=== PATIENT | female | born 1995 | race Caucasian/White ===

== ENCOUNTER 2016-07-11 09:00 | Emergency (ER) | payer MEDICAID, OTHER ==
[~2016-07-11] VITALS: Ht 157.5 cm; Wt 50.5 kg
[~2016-07-11 09:00] MED LIST: IBUP600 PO; MULT-65 PO; PERI8.6T PO
[2016-07-11 09:08] VITALS: BP 116/72; PULSE 65; RESP 16; TEMP 97.9; O2SAT 98
[2016-07-11 09:27] LABS: BLOOD, URINE NEG (NEG); GLUCOSE,URINE NEG (NEG); KETONE, URINE NEG (NEG); NITRITE,URINE NEG (NEG)
[2016-07-11 09:39] LABS: METHOD OF COLLECTION VOIDED; MUCUS URINE FEW /lpf (OCC); URINE COLOR YELLOW (YELLW/STRAW); WBC, URINE 0-2 /hpf (0-5)
[2016-07-11 09:40] LABS: BACTERIA, URINE RARE /hpf; COMMENT (UR) CULT NOT INDICATED; CULTURE IF INDICATED CULT NOT INDICATED
[2016-07-11] MEDS ORDERED: PROM25TA5 PO (09:42)
--- NOTE | 2016-07-11 09:45 | PD ---
HPI Chief Complaint: GI Complaint Time Seen by Provider: 09:14 Travel History International Travel<30 days: No Contact w/Intl Traveler<30days: No Traveled to known affect area: No History of Present Illness HPI The patient was seen and examined in the presence of the nurse. This patient complains of feeling heartburn type symptoms. She threw up today. She has irregular periods all the time. She has no diarrhea or abdominal or pelvic pain. symptoms severity is mild PFSH Past Medical History Medical History: Denies Significant Hx ADHD: No Cancer: No Cardiovascular Problems: No Diabetes: No Diminished Hearing: No Psychiatric: No Immunizations Current: Yes Migraines: No Seizures: No Thyroid Disease: No Ulcer: No Tetanus Vaccination: < 5 Years ?: LMP: IRREG Menopausal: No : 2 Para: 0 : 1 Past Surgical History Surgical History: No Previous Surgery Appendectomy: No Cholecystectomy: No Other Surgery: No Social History Alcohol Use: No Tobacco Use: No Substance Use: No Allergies-Medications (Allergen,Severity, Reaction): Coded Allergies: No Known Allergies (Verified , 07/11/16) Reported Meds & Prescriptions Reported Meds & Active Scripts Active No Active Prescriptions or Reported Medications Review of Systems General / Constitutional: No: Fever HENT: No: Headaches Cardiovascular: No: Chest Pain or Discomfort Respiratory: No: Cough Physical Exam Narrative GASTROINTESTINAL: Abdomen soft, non-tender, nondistended. Positive bowel sounds. No hepato-splenomegaly, or palpable masses. No guarding. SKIN: Focused skin assessment reveals no rash or ulcers. Skin is warm and dry. Palpation shows no induration or nodules. RESPIRATORY: Respiratory effort unlabored, no retractions or use of accessory muscles. Breath sounds are clear and symmetric. Data Data Last Documented VS Vital Signs Date Time Temp Pulse Resp B/P Pulse Ox O2 Delivery O2 Flow Rate FiO2 07/11/16 09:08 97.9 65 16 116/72 98 Orders Urinalysis - C+S If Indicated (07/11/16 09:10) Ed Urine Pregnancytest Poc (07/11/16 09:10) Labs Laboratory Tests Test 07/11/16 09:17 Urine Collection Type VOIDED Urine Color YELLOW Urine Turbidity CLEAR Urine pH 6.0 Urine Specific [place] 1.024 Urine Protein TRACE mg/dL Urine Glucose (UA) NEG mg/dL Urine Ketones NEG mg/dL Urine Occult Blood NEG Urine Nitrite NEG Urine Bilirubin NEG Urine Leukocyte Esterase TRACE Urine WBC 0-2 /hpf Urine Squamous Epithelial 6-8 /hpf Cells Urine Bacteria RARE /hpf Urine Mucus FEW /lpf Microscopic Urinalysis Comment CULT NOT INDICATED MDM Medical Decision Making Medical Screen Exam Complete: Yes Emergency Medical Condition: Yes Medical Record Reviewed: Yes Differential Diagnosis Vomiting of , dyspepsia, gastric ulcer Narrative Course I have reviewed the patient's electronic medical record. Patient was in 2015 with of her first child Urine is positive Urinalysis shows no sign of infection Patient looks clinically well with normal exam and vital signs is likely causing her symptoms She wants a prescription in case she needs for nausea and vomiting relief. Advised her to only use if truly needed and to limit dosing of that. Warned about potential sedation and risks to fetus potential. She is willing to accept the risk of medication. Diagnosis Primary Impression: Vomiting affecting Additional Instructions: Follow-up with [facility] physician for care Small frequent bland meals The patient was warned about potential sedation for the medications they will receive on prescription. Use prescription only if truly needed Med/Other Pt SpecificInfo: Prescription(s) given Scripts Promethazine (Phenergan)25 Mg Tab25 Mg PO Q6H PRN (Nausea/Vomiting) #12 TAB Ref 0 Prov:Erick Castaneda MD 07/11/16 Disposition: 01 DISCHARGE HOME Condition: Stable Erick Castaneda MD July 11, 2016 09:45
== END 2016-07-11 09:55 | disposition home or self-care (01) ==
LOC: PHED 09:00
DX: O21.9 Vomiting of pregnancy, unspecified (principal); Z3A.00 Weeks of gestation of pregnancy not specified
CPT/HCPCS: 81001; 84703; 99283